=== PATIENT | female | born 1945 | race Caucasian/White ===

== ENCOUNTER 2022-12-05 14:15 | Outpatient (REF) | payer MEDICARE, SELFPAY | END 2022-12-05 14:16 | disposition home or self-care (01) | LOC: HO.LNP 14:15 | PROVIDERS: Visit Provider Internal Medicine | DX: N30.00 Acute cystitis without hematuria (principal) | CPT/HCPCS: 87086; 87088; 87186 ==

== ENCOUNTER 2023-05-09 10:24 | Outpatient (AMB) | payer MEDICARE, SELFPAY ==
--- NOTE | 2023-05-09 11:53 | MHC.OFFWIV ---
Intake Vital Signs 05/09/23 11:56 Height 5 ft 3 in Weight 166 lb BMI 29.4 BP 130/80 Blood Pressure Location Rt brachial Position Sitting Pulse 64 Pulse Source Pulse Oximeter Pulse Oximetry (%) 96 Oxygen Delivery Method Room Air Intake Visit Reasons: EST/right on right foot Intake Note: Patient here for nilat ankle rash that has been present for at least 1 week, she was started on ketoconazole which is not helping much but worsening the rash. Patient Tobacco Use Status: Never used Tobacco Allergies No Known Allergies Allergy (Verified 05/09/23 11:58) Do you need a note to return to daycare/school/sports/work: No HPI HPI Comments History of Present Illness Details This is a 77-year-old female who presents to the office today for sick visit. Patient complaining of a rash on both feet x3 days. Patient states she was diagnosed with athlete's foot approximately 1 week ago. She was started on ketoconazole cream at that time. Patient then started to developed an erythematous and pruritic rash on both of her feet. She denies any fevers or chills. She is otherwise feeling well without chest pain, shortness of breath, chest tightness, or wheezing. [facility] Social History Patient Tobacco Use Status: Never used Tobacco Review of Systems Const All systems reviewed & are unremarkable except as noted in HPI and below Reports no additional complaints Eyes Reports no additional complaints ENT Reports no additional complaints Card Reports no additional complaints Resp Reports no additional complaints GI Reports no additional complaints Reports no additional complaints Musc Reports no additional complaints Skin/Breast Reports system reviewed and no additional complaints, except as documented Neuro Reports no additional complaints Psych Reports no additional complaints Endo Reports no additional complaints Edin/Lymph Reports no additional complaints Aller/Immun Reports no additional complaints Physical Exam Vital Signs: Last Vital Signs Pulse 64 05/09/23 11:56 BP 130/80 05/09/23 11:56 Pulse Ox 96 05/09/23 11:56 Oxygen Delivery Method Room Air 05/09/23 11:56 BMI result Body Mass Index 29.4 Const Other: Vital signs reviewed. Constitutional: Non-toxic appearing. No acute distress. Well-developed and well-nourished. HEENT: Normocephalic and atraumatic. Moist mucous membranes. Skin: Homogeneous area of erythema on bilateral feet, right greater than left with overlying scaling. Neck: Full and painless range of motion. Cardio: Regular rate. No lower extremity edema. No JVD. Pulmonary: No respiratory distress. No accessory muscle usage. Gastrointestinal: Soft, nontender, and nondistended in all 4 quadrants. Musculoskeletal: Normal range of motion in joints throughout the body. No deformity or other signs of injury. Neuro: Alert and oriented x4. Cranial nerves 2-12 grossly intact. No focal deficits appreciated. Psych: Normal mood and affect. Assessment & Plan Assessment & Plan (1) Allergic contact dermatitis: Code(s): L23.9 - Allergic contact dermatitis, unspecified cause Plan This is a 77-year-old female presenting to the office complaining of a rash on bilateral feet in the setting of ketoconazole use. History and physical most consistent with allergic contact dermatitis, likely due to ketoconazole cream. Her rash does not appear cellulitic given bilateral nature and well-circumscribed border. There is no lymphangitic streaking, fluctuance, or induration. Patient is otherwise feeling well, her physical exam is otherwise benign, and she is overall nontoxic appearing. Patient was sent home on topical and oral steroids given the distribution of her rash. Patient can utilize antihistamines such as diphenhydramine at bedtime if her rash is bothersome at bedtime. She was advised to follow-up here or proceed to the emergency room if she were to develop persistent or worsening symptoms. Patient verbalizes her understanding and she is in agreement with the plan. Medications: New prednisone take 4 tablets daily x 2 days followed by 3 tablets daily x 2 days followed by 2 tablets daily x 2 days follower by 1 tablet daily x 2 days follower by 1/2 tablet daily x 2 days. 10 mg PO DIRECTED 21 tabs 0RF betamethasone dipropionate 0.05% 1 appl topical BID 15 grams 0RF Coding Level of Care Code Est Pt Level 3 (54020) Diagnoses Allergic contact dermatitis L23.9
[2023-05-09 11:56] VITALS: BP 130/80; PULSE 64; O2SAT 96; BMI 29.4
== END 2023-05-09 12:49 | disposition home or self-care (01) ==
PROVIDERS: PCP Internal Medicine; Visit Provider Physician Assistant Medical
DX: L23.9 Allergic contact dermatitis, unspecified cause (principal)
CPT/HCPCS: 99213

== ENCOUNTER 2024-07-12 13:43 | Outpatient (AMB) | payer MEDICARE, SELFPAY ==
[2024-07-12 13:47] VITALS: BP 146/72; PULSE 65; O2SAT 95
--- NOTE | 2024-07-12 13:48 | MHC.OFFWIV ---
Intake Vital Signs 07/12/24 13:47 Height 5 ft 3 in Weight 169 lb 4 oz BMI 30.0 BP 146/72 H Blood Pressure Location Rt brachial Position Sitting Pulse 65 Pulse Source Pulse Oximeter Pulse Oximetry (%) 95 Oxygen Delivery Method Room Air Intake Visit Reasons: EP ? UTI Intake Note: Pt is here today for a UTI Patient Tobacco Use Status: Never used Tobacco Allergies No Known Allergies Allergy (Verified 07/12/24 13:47) HPI HPI Comments History of Present Illness Details History of Present Illness The patient is a 78-year-old female presenting with acute back pain and urinary frequency x 3 days. The pain began abruptly this morning and was described as severe in intensity, primarily localized on the right side of the back, with associated suprapubic discomfort. The patient reported significant difficulty in rising from bed due to the pain severity. She attempted relief with analgesics (unspecified) with partial symptomatic improvement; however, pain reoccurred. Additionally, she noted increased urinary frequency starting on Friday night, leading to wet pads, but denied any dysuria or hematuria. She reported experiencing chills without accompanying fever. The patient has no previous history of kidney stones and has not observed hematuria. Physical Exam General: Cooperative, healthy appearing, comfortable, no acute distress and well developed Orientation: Patient oriented x3 Limitations: No limitations Head: Normal to inspection Ears: Hearing grossly normal bilaterally Nose: Normal external nose present Face and sinus: Normal facial exam Eyes: Appearance normal, both eyes and all related structures Neck: Normal visual inspection and Yes full ROM Respiratory: Normal respiratory effort and able to speak in complete sentences. : negative CVA Skin: No rashes or lesions noted Neuro: Patient oriented x3 Extremities: Normal to inspection [facility] Social History Patient Tobacco Use Status: Never used Tobacco Review of Systems Const All systems reviewed & are unremarkable except as noted in HPI and below Physical Exam Vital Signs: Last Vital Signs Pulse 65 07/12/24 13:47 BP 146/72 H 07/12/24 13:47 Pulse Ox 95 07/12/24 13:47 Oxygen Delivery Method Room Air 07/12/24 13:47 BMI result Body Mass Index 30.0 Results AMB Urinalysis, Automated UA Leukoctes 15 Kingsley/uL Last Edit by Kelton Winchester CMA on 07/12/24 14:26 UA Nitrite Negative Last Edit by Kelton Winchester CMA on 07/12/24 14:26 UA Urobilinogen 0.2 mg/dL Last Edit by Kelton Winchester CMA on 07/12/24 14:26 UA Protein 0 mg/dL Last Edit by Kelton Winchester CMA on 07/12/24 14:26 UA pH 6.0 Last Edit by Kelton Winchester CMA on 07/12/24 14:26 UA Blood 25 David/uL Last Edit by Kelton Winchester CMA on 07/12/24 14:26 UA Specific [place] 1.010 Last Edit by Kelton Winchester CMA on 07/12/24 14:26 UA Ketone Negative Last Edit by Kelton Winchester CMA on 07/12/24 14:26 UA Bilirubin 0 mg/dL Last Edit by Kelton Winchester CMA on 07/12/24 14:26 UA Glucose 0 mg/dL Last Edit by Kelton Winchester CMA on 07/12/24 14:26 Results Reviewed Results Reviewed: Laboratory Last Values Urine pH (Auto) 6.0 07/12/24 14:25 Specific [place] (Auto) 1.010 07/12/24 14:25 Urine Protein (Auto) 0 mg/dL 07/12/24 14:25 Glucose (UA)(Auto) 0 mg/dL 07/12/24 14:25 Urine Ketones (Auto) Negative 07/12/24 14:25 Urine Blood (Auto) 25 David/uL 07/12/24 14:25 Urine Nitrite (Auto) Negative 07/12/24 14:25 Urine Bilirubin (Auto) 0 mg/dL 07/12/24 14:25 Urine Urobilinogen (Auto) 0.2 mg/dL 07/12/24 14:25 Leukocyte Esterase (Auto) 15 Kingsley/uL 07/12/24 14:25 Assessment & Plan Assessment & Plan (1) Acute cystitis: Code(s): N30.00 - Acute cystitis without hematuria Qualifiers: Hematuria presence: with hematuria Qualified Code(s): N30.01 - Acute cystitis with hematuria Plan: Plan 1. Acute Urinary Tract Infection: UA + leuk est, + blood, neg nitrites. Ordered a urine culture to confirm bacterial pathogens and susceptibility; advised treatment adjustments based on culture results. Sent cefuroxime to pharmacy. 2. Low Back Pain: - Advised monitoring symptoms, with instructions to seek emergency care if pain worsens or other concerning symptoms develop, as differentials include nephrolithiasis. The patient was instructed to be vigilant for worsening symptoms and to seek further medical evaluation if the pain becomes unmanageable or suggestive of renal calculi. Further diagnostic imaging may be warranted if symptoms do not resolve as expected. Patient was informed and verbally consented to the use of an ambient scribe for clinic note documentation during this visit. Orders: Orders AMB Urinalysis Automated Today Z13.9 - Encounter for screening, unspecified Urine Culture Today N39.0 - Urinary tract infection, site not specified Medications: New cefuroxime axetil 500 mg PO Q12H 10 tabs 0RF Coding Level of Care Code New Pt Level 3 (85546) Diagnoses Acute cystitis with hematuria N30.01 Hematuria presence: with hematuria
== END 2024-07-12 14:35 | disposition home or self-care (01) ==
PROVIDERS: PCP Internal Medicine; Visit Provider Physician Assistant
DX: Z13.9 Encounter for screening, unspecified (principal); N30.01 Acute cystitis with hematuria

== ENCOUNTER 2024-07-12 13:43 | Outpatient (REF) | payer MEDICARE, SELFPAY | END 2024-07-12 13:44 | disposition home or self-care (01) | LOC: HO.LAB 13:43 | PROVIDERS: PCP Internal Medicine | DX: N30.01 Acute cystitis with hematuria (principal) | CPT/HCPCS: 81003; 87086; 99202 ==

== ENCOUNTER 2025-07-25 14:42 | Outpatient (REF) | payer MEDICARE, SELFPAY ==
--- OUTSIDE RECORDS SUMMARY | 2025-07-25 18:48 | XMS_ITS | Encounter Summary ---
Author Organization [facility] Prior to 06/04/2024 Address [address] [place] [address] Care Team Providers Care Middle [employer] Assistant Principal Name Role Phone Alec Black MD Primary Care Provider Unavail able Encounter Details Date Type Department Care Team Description 10/14/2018 Release of Information Medical Records [address] [place] [address] Abstract, Provider Social History Tobacco Use Types Packs/Day Years Used Date Smoking Tobacco: Never Smokeless Tobacco: Never Alcohol Use Standard Drinks/Week Comments No 0 (1 standard drink = 0.6 oz pur e alcohol) Sex Assigned at Date Recorded Not on file Job Start Date Occupation Industry Not on file Not on file Not on file documented as of this encounter Plan of Treatment Not on file documented as of this encounter Visit Diagnoses Not on filedocumented in this encounter Care Teams Middle School Assistant Principal Relationship Specialty Start Date End Date Alec Black MD PCP - General Internal Medicine 05/10/19 documented as of this encounter
--- OUTSIDE RECORDS SUMMARY | 2025-07-25 18:48 | XMS_ITS | Encounter Summary ---
Author Organization [employer] Prior to 06/04/2024 Address [address] [place] [address] Care Team Providers Care Shank Breaker Name Role Phone Alec Black MD Primary Care Provider Unavail able Reason for Visit * Reason Onset Date Comments Medication 08/06/2017 Encounter Details Date Type Department Care Team Description 08/06/2017 Telephone Gastroenterology - [place] [address] [place] [id number] Juliano Hall MD Medication Social History Tobacco Use Types Packs/Day Years Used Date Smoking Tobacco: Never Smokeless Tobacco: Never Alcohol Use Standard Drinks/Week Comments No 0 (1 standard drink = 0.6 oz pur e alcohol) Sex Assigned at Date Recorded Not on file Job Start Date Occupation Industry Not on file Not on file Not on file documented as of this encounter Miscellaneous Notes * Telephone Encounter - Juliano Hall MD - 08/06/2017 11:16 AM EST Prescribed * Telephone Encounter - Lea Arreaga - 08/06/2017 11:04 AM EST Colonoscopy is on 08/21/17. can you sign order? documented in this encounter Plan of Treatment Not on file documented as of this encounter Visit Diagnoses Not on filedocumented in this encounter Care Teams Shank Breaker Relationship Specialty Start Date End Date Alec Black MD PCP - General Internal Medicine 05/10/19 documented as of this encounter
--- OUTSIDE RECORDS SUMMARY | 2025-07-25 18:48 | XMS_ITS | Encounter Summary ---
Author Organization [facility] Prior to 06/04/2024 Address [address] [place] [address] Care Team Providers Care Waterway Traffic Checker Name Role Phone Alec [place] MD Primary Care Provider Unavail able Encounter Details Date Type Department Care Team Description 02/09/2023 Hospital Medical Records [address] [place] [address] Juan Miguel Srivastava MD [address] [place] [address] [address] [place] [address] Social History Tobacco Use Types Packs/Day Years [...] on filedocumented in this encounter Care Teams Waterway Traffic Checker Relationship Specialty Start Date End Date Alec Black MD PCP - General Internal Medicine 05/10/19 documented as of this encounter
--- OUTSIDE RECORDS SUMMARY | 2025-07-25 18:48 | XMS_ITS | Encounter Summary ---
Author Organization [facility] Prior to 06/04/2024 Address [address] [place] [address] Care Team Providers Care Educational Sign Language Interpreter Name Role Phone Alec [place] MD Primary Care Provider Unavail able Reason for Visit * Reason Onset Date Comments medication problems 06/19/2017 Encounter Details Date Type Department Care Team Description 06/19/2017 Telephone Adult Medicine [facility] [address], [place] [id number] Sybil Rivera MD [address] [place] [address] medication problems Social History Tobacco Use Types Packs/Day Years [...] encounter Miscellaneous Notes * Telephone Encounter - Sotero Alex C.M.A. - 06/19/2017 4:46 PM EST Message left for patient to return my call. * Telephone Encounter - Sawyer Gregg PA-C - 06/19/2017 4:25 PM EST Please ask pt to contact insurance to find out what drug is less expensive. Thank-you * Telephone Encounter - Sotero Alex C.M.A. - 06/19/2017 3:21 PM EST I called pharmacy and pharmacist states that they will not know what other med can be prescribed inorder for the pt to pay less. Please advise if you would send an alternative medication or if the pt should contact her insurance to find out. * Telephone Encounter - Vanessa Vallecillo - 06/19/2017 2:48 PM EST Who is calling? The patient Name of the medication fluticasone (FLOVENT HFA) 110 MCG/ACT inhaler What is the specific problem or interaction? Patient states that this medication would cost her a lot of money and would like to have another medication prescribed to her If the patient is having a problem with taking the med - how long has the problem been going on? N/A documented in this encounter Plan of Treatment Not on file documented as of this encounter Visit Diagnoses Not on filedocumented in this encounter Care Teams Educational Sign Language Interpreter Relationship Specialty Start Date End Date Alec [place] MD PCP - General Internal Medicine 05/10/19 documented as of this encounter
--- OUTSIDE RECORDS SUMMARY | 2025-07-25 18:48 | XMS_ITS | Encounter Summary ---
Author Organization [employer] [facility] Prior to 06/04/2024 Address [address] [place] [address] Care Team Providers Care Longshore Equipment Operator Name Role Phone Viraj Beard MD Primary Care Provider Unavail able Alec Black MD Primary Care Provider Unavail able Encounter Details Date Type Department Care Team Description 01/06/2015 Release of Information Medical Records [address] [place] [id number] Abstract, Provider Social History Tobacco Use Types Packs/Day Years Used Date Smoking Tobacco: Never Alcohol Use Standard Drinks/Week Comments [...] on filedocumented in this encounter Care Teams Longshore Equipment Operator Relationship Specialty Start Date End Date Viraj Beard MD PCP - General Internal Medicine 01/04/15 07/05/15 Alec Black MD PCP - General Internal Medicine 05/10/19 documented as of this encounter
--- OUTSIDE RECORDS SUMMARY | 2025-07-25 18:48 | XMS_ITS | Encounter Summary ---
Author Organization [employer] [facility] Prior to 06/04/2024 Address [address] [place] [address] Care Team Providers Care Office Service Coordinator Name Role Phone Viraj Beard MD Primary Care Provider Unavail able Alec Black MD Primary Care Provider Unavail able Encounter Details Date Type Department Care Team Description 09/20/2014 Hereditary Cancer Qu iz Results Medical Records [address] [place] [id number] Abstract, Provider Social History Tobacco Use Types [...] on filedocumented in this encounter Care Teams Office Service Coordinator Relationship Specialty Start Date End Date Viraj Beard MD PCP - General Internal Medicine 01/04/15 07/05/15 Alec Black MD PCP - General Internal Medicine 05/10/19 documented as of this encounter
[2025-07-26 11:43] LABS: Resp Syncy Virus RNA Qual PCR NEGATIVE (Negative); SARS COV2 PCR INHOUSE NEGATIVE (Negative)
== END 2025-07-25 14:43 | disposition home or self-care (01) ==
LOC: HO.LNP 14:42
PROVIDERS: Physician Assistant Medical; PCP Internal Medicine
DX: J06.9 Acute upper respiratory infection, unspecified (principal); R05.9 Cough, unspecified; R09.81 Nasal congestion
CPT/HCPCS: 87637